=== PATIENT | female | born 2005 | race Asian ===

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

== ENCOUNTER 2023-06-08 10:06 | Outpatient (REF) | payer MEDICAID, SELFPAY ==
[2023-06-08 11:47] LABS: MANUAL DIFF FLAG NO
[2023-06-08 12:01] LABS: Basophils Percent Auto 0.3 % (0-2); Eosinophils Absolute Auto 0.5 X10*3/uL (0.0-0.4); Eosinophils Percent Auto 3.9 % (0-4); Hematocrit 40.6 % (37.0-47.0); Hemoglobin 12.5 g/dl (12.0-16.0); Imm Gran Abs Auto 0.03 X10*3/uL (0.00-0.03); Imm Gran Pct Auto 0.3 % (0.0-0.4); Lymphocytes Absolute Auto 4.5 X10*3/uL (1.2-4.9); Lymphocytes Percent Auto 38.4 % (20-40); Mean Corpuscular HGB Conc 30.8 g/dl (31.0-35.0); Mean Corpuscular Hemoglobin 24.9 pg (27.0-33.0); Mean Corpuscular Volume 80.9 fL (80.0-98.0); Mean Platelet Volume 9.5 fL (9.4-12.3); Monocytes Absolute Auto 0.7 X10*3/uL (0.1-1.2); Monocytes Percent Auto 5.7 % (2-11); Neutrophils Percent Auto 51.4 % (45-73); Platelet Count 359 X10*3/uL (160-400); Red Blood Count 5.02 X10*6/uL (4.20-5.50); Red Cell Distribution Width 14.8 % (11.0-16.0); White Blood Count 11.7 X10*3/uL (4.8-10.8)
[2023-06-08 12:12] LABS: Estimated Average Glucose 105 mg/dL; Hemoglobin A1c % 5.3 % (<6.0)
[2023-06-08 12:43] LABS: Alanine Aminotransferase 16 U/L (0-31); Albumin Level 4.3 g/dL (3.5-5.0); Alkaline Phosphatase 59 U/L (39-117); Anion Gap 12 (12-20); Aspartate Amino Transferase 12 U/L (5-31); Bilirubin Direct < 0.2 mg/dL (0.0-0.5); Bilirubin Total 0.2 mg/dL (0.0-1.0); Blood Urea Nitrogen 14 mg/dL (9-16); Calcium 9.4 mg/dL (8.4-10.2); Carbon Dioxide 25 mmol/L (22-29); Chloride 106 mmol/L (96-108); Cholesterol 171 mg/dL (<200); Estimated Glomerular Filt Rate > 60; Glucose Random 82 mg/dL (60-115); HDL Cholesterol 50 mg/dL (>40); LDL Cholesterol Calculated 88 mg/dL (<100); Potassium 4.4 mmol/L (3.3-5.1); Sodium 139 mmol/L (135-145); Total Protein 8.2 g/dL (6.5-8.0); Triglycerides 169 mg/dL (<150)
[2023-06-08 13:02] LABS: TSH reflex Free T4 6.26 uIU/mL (0.32-4.0)
[2023-06-08 14:24] LABS: Free T4 (Free Thyroxine) 0.86 ng/dL (0.71-1.85)
== END 2023-06-08 10:07 | disposition home or self-care (01) ==
LOC: HO.HHCL 10:06
PROVIDERS: Visit Provider Internal Medicine
DX: E03.8 Other specified hypothyroidism (principal); E06.3 Autoimmune thyroiditis
CPT/HCPCS: 36415; 80048; 80061; 80076; 83036; 84439; 84443; 85025

== ENCOUNTER 2023-06-18 13:23 | Outpatient (AMB) | payer MEDICAID, SELFPAY ==
--- NOTE | 2023-06-18 13:30 | MHC.OFFVIS ---
Intake Vital Signs 06/18/23 13:33 Height 5 ft 7 in Weight 224 lb BMI 35.1 BP 128/80 Blood Pressure Location Rt brachial Position Sitting Pulse 80 Intake Visit Reasons: axillary mass Intake Note: Patient referred by pcp Dr. Harjinder Mars for mass on Lt axilla. Reports mass present for 2-3 years. Patient c/o: denies pain, tenderness, oozing. Narrow Fabric Calenderer Required: No Accompanied by: Self / Same As Patient Allergies No Known Allergies [No Known Allergies*] Allergy (Verified 06/18/23 13:31) HPI HPI Comments History of Present Illness Details Patient presents with a 2 year history of a left axillary soft tissue mass. His increasing size, become more symptomatic. She would like to have it excised. She has no such lesions or gross elsewhere. Chart was reviewed patient evaluated. [facility] Medical History Patient denies significant medical history Social History (Updated 06/18/23 @ 13:31 by GABINO Damian) Alcohol intake: never Patient Tobacco Use Status: Never used Tobacco Physical Exam Vital Signs: Last Vital Signs Pulse 80 06/18/23 13:33 BP 128/80 06/18/23 13:33 BMI result Body Mass Index 35.1 Neck Other: No cervical, periclavicular, or axillary adenopathy bilaterally. Chest Other: For chest breath sounds bilaterally, HS 1 and 2. Patient has a left axillary soft tissue mass consistent with an axillary tail of the breast. No evidence of any other gross pathology demonstrated. Assessment & Plan Assessment & Plan (1) Mass of axillary tail of breast: Code(s): N63.0 - Unspecified lump in unspecified breast Plan As noted above, patient wishes to have this excised. Risks, benefits, alternatives of excision of left axillary soft tissue mass were reviewed with the patient and included but not limited to bleeding, infection, recurrence, numbness, pain, scarring, seroma formation and the patient wishes to proceed. All questions answered. Arrangements were made for this. Coding Level of Care Code New Pt Level 5 (82276) Diagnoses Mass of axillary tail of breast N63.0
[2023-06-18 13:33] VITALS: BP 128/80; PULSE 80; BMI 35.1
== END 2023-06-18 14:05 | disposition home or self-care (01) ==
PROVIDERS: PCP Internal Medicine; Referring Provider Internal Medicine; Visit Provider Surgery
DX: N63.0 Unspecified lump in unspecified breast (principal)
CPT/HCPCS: 99204

== ENCOUNTER → 2023-06-18 13:23 | Outpatient (BNVA) | payer MEDICAID, SELFPAY | PROVIDERS: PCP Internal Medicine; Referring Provider Internal Medicine; Visit Provider Surgery | DX: N63.0 Unspecified lump in unspecified breast (principal) | CPT/HCPCS: 99202 ==

== ENCOUNTER 2023-06-22 11:42 | Day surgery (SDC) | payer MEDICAID, SELFPAY ==
[2023-06-22] VITALS (10 sets, daily range): BP systolic 108–140; BP diastolic 57–91; PULSE 67–90; RESP 12–18; TEMP 36.6–36.7; O2SAT 93–99; BMI 35.5
--- NOTE | 2023-06-22 05:31 | MHC.SHP ---
Pre-Procedural Eval Section A Date of Service: 06/22/23 The patient is an INPATIENT: No Changes since office visit: No Cold of Flu in the past 2 weeks, No New Medical Problems, No Changes in Medication and No Patient answered all questions The History & Physical has been completed within 30 days and I have reviewed it.: Yes Section B Chief Complaint: Unspecified lump in unspecified breast Allergies: Allergies Allergy/AdvReac Type Severity Reaction Status Date / Time No Known Allergies Allergy Verified 06/18/23 13:31 [No Known Allergies*] Plan I have reviewed the history and physical and performed a pertinent physical examination on my patient. No changes have occurred unless specified. Time Spent With Patient Time: Total time managing care of this patient today ____ minutes.
[2023-06-22 12:03] LABS: UPreg QC Valid YES; Urine Pregnancy NEGATIVE (NEGATIVE)
[2023-06-22] MEDS: Lactated Ringers 1,000 ML 100 ML IVCONT (12:13)
--- NOTE | 2023-06-22 12:45 | P.CONAN_ITS ---
Documented by User: Qi Sommer NP 06/21/23 10:11 HPI - Anesthesia Eval Consult details Narrative: 17yo F for Left Wide Local Excision Axillary Mass [facility] Active Problems Active Problems: All Active Problems (Updated 08/28/20 @ 00:01 by Jacobo De Jesus) Mass of axillary tail of breast (Acute) Abdominal pain (Acute) Past Medical History Medical History (Updated 06/22/23 @ 12:27 by Jacquelyn Mathis RN) Hx of abdominal pain Hx: UTI (urinary tract infection) Axillary mass Seasonal allergies Uses control Anemia Patient denies significant medical history Surgical History Surgical History (Updated 06/22/23 @ 12:21 by Jacquelyn Mathis RN) No pertinent past surgical history Social History Social History (Updated 06/18/23 @ 13:31 by GABINO Damian) Alcohol intake: never Patient Tobacco Use Status: Never used Tobacco Are you DNR?: No Advance Directives: No Advance Directives Information Provided: Yes Nutrition Risks: No Nutritional Risk Patient : No FDLMP: now Meds Allergies Allergy/AdvReac Type Severity Reaction Status Date / Time No Known Allergies Allergy Verified 06/22/23 12:25 [No Known Allergies*] Home Medications Medication Instructions Recorded Confirmed Last Taken Type cetirizine 10 mg tablet 10 mg PO BEDTIME PRN allergies 06/22/23 06/22/23 06/21/23 22:00 History norelgestromin 150 mcg-e.estradiol 1 patch transdermal QWEEK 06/22/23 06/22/23 06/20/23 History 35 mcg/24 hr weekly transderm control patch (Xulane) Exam Pertinent Lab Results Pertinent Lab Results: Laboratory Tests 06/08/23 10:08 WBC 11.7 H Hgb 12.5 Hct 40.6 Plt Count 359 Sodium 139 Potassium 4.4 Chloride 106 Carbon Dioxide 25 BUN 14 Creatinine 0.58 Assessment and Plan Assessment Anesthesia Assessment: Chart Reviewed Documented by User: Lisa Mckeon DO 06/22/23 13:21 [facility] Past Medical History Medical History (Updated 06/22/23 @ 12:27 by Jacquelyn Mathis RN) Hx of abdominal pain Hx: UTI (urinary tract infection) Axillary mass Seasonal allergies Uses control Anemia Patient denies significant medical history Family History Family history of problems with anesthesia: No Surgical History Surgical History (Updated 06/22/23 @ 12:21 by Jacquelyn Mathis RN) No pertinent past surgical history History of Problems with Anesthesia: No Social History Social History (Updated 06/18/23 @ 13:31 by GABINO Damian) Alcohol intake: never Patient Tobacco Use Status: Never used Tobacco Are you DNR?: No Advance Directives: No Advance Directives Information Provided: Yes Nutrition Risks: No Nutritional Risk Patient : No FDLMP: now Meds Allergies Allergy/AdvReac Type Severity Reaction Status Date / Time No Known Allergies Allergy Verified 06/22/23 12:25 [No Known Allergies*] Home Medications Medication Instructions Recorded Confirmed Last Taken Type cetirizine 10 mg tablet 10 mg PO BEDTIME PRN allergies 06/22/23 06/22/23 06/21/23 22:00 History norelgestromin 150 mcg-e.estradiol 1 patch transdermal QWEEK 06/22/23 06/22/23 06/20/23 History 35 mcg/24 hr weekly transderm control patch (Xulane) Exam Exam Date and Time: June 22, 2023 1245 Height,Weight and Vital Signs: Height 5 ft 7.5 in Weight 104.326 kg Vital Signs Temperature 98 F 06/22/23 12:07 Pulse Rate 90 06/22/23 12:07 Respiratory Rate 18 06/22/23 12:07 Blood Pressure 137/91 H 06/22/23 12:07 Pulse Oximetry 98 06/22/23 12:07 Oxygen Delivery Method Room Air 06/22/23 12:07 Temperature 98 F 06/22/23 12:07 Pulse Rate 90 06/22/23 12:07 Respiratory Rate 18 06/22/23 12:07 Blood Pressure 137/91 H 06/22/23 12:07 Pulse Oximetry 98 06/22/23 12:07 Oxygen Delivery Method Room Air 06/22/23 12:07 Airway Mallampati Class: I TM Dist: >3cm Neck ROM: Full Loose/Missing/Broken Teeth: No Heart: S1S2 Lungs: CTAB Assessment and Plan Assessment Anesthesia Assessment: Anesthesia Plan Discussed and Chart Reviewed Final Anesthetic Review Family History of Problems with Anesthesia: No History of Problems with Anesthesia: No NPO: Yes ASA Class: I Final Preanesthetic Review: No Changes in Pt Med Stat, Meds/Allgs Chart Reviewed, Consent Obtained/Reviewed and Anes Risks/Benef Reviewed Patient Risk: Low Procedure Risk: Low Anesthetic Plan Anesthetic Plan: MAC: and Agree w/ Assess. and Plan Disposition: Standard PACU
--- NOTE | 2023-06-22 13:41 | P.OP_ITS ---
Operative Note Operative Note Date of Service: 06/22/23 Narrative: Preoperative diagnosis: [] Left axillary tail of breast symptomatic Postop diagnosis: [] Same Procedure [] wide local excision axillary tail left breast and axilla Surgeon: [] [employer] Dispatcher: [] Brooke Type of Anesthesia: [] General Indication for surgery: [] Symptomatic left axillary tail of breast. Findings: [] Patient brought to the operating room, placed on operative table supine position, after adequate level of general anesthesia was induced, the left upper extremity, chest and axilla were all prepped and draped in usual sterile fashion. Using a transverse by elliptical incision in the left medial area of the axilla and lateral aspect of the breast, this carried down through skin, subcutaneous tissue, were excision of left axillary breast tail was uneventfully excised using Bovie. Specimen sent to pathology. Wound was irrigated, secured hemostasis, and closed using combination of interrupted 2-0 and 3-0 dermal Vicryl sutures followed by Steri-Strips and sterile dressings. Wound was infiltrated 0.5% Marcaine/1% lidocaine at completion. Sponge, needle, and instrument counts were reported to be correct. Patient tolerated the procedure well and emerged from anesthesia in stable condition. EBL minimal
[2023-06-22] MEDS: oxyCODONE HCl Immed Release 5 MG TABLET 10 MG PO (14:15)
[2023-06-22] MEDS: fentaNYL citrate/PF 100 MCG/2 ML VIAL 50 MCG IVPUSH ×2 (14:45→14:50)
== END 2023-06-22 15:38 | disposition home or self-care (01) ==
PROVIDERS: Nurse Practitioner; PCP Internal Medicine; Visit Provider Surgery
PROC: (CPT 19120; principal; 2023-06-22 13:10)
DX: N63.32 Unspecified lump in axillary tail of the left breast (principal); N64.89 Other specified disorders of breast; D64.9 Anemia, unspecified; J30.2 Other seasonal allergic rhinitis; Z79.899 Other long term (current) drug therapy; Z79.3 Long term (current) use of hormonal contraceptives
CPT/HCPCS: 19120; 81025; 88305; 88307; J0131; J0665; J0690; J1885; J2250; J2704; J3010

== ENCOUNTER → 2023-06-22 11:42 | Outpatient (BNV) | payer MEDICAID, SELFPAY | PROVIDERS: PCP Internal Medicine; Visit Provider Surgery | DX: N63.20 Unspecified lump in the left breast, unspecified quadrant (principal) | CPT/HCPCS: 19120 ==

== ENCOUNTER 2023-11-20 09:26 | Outpatient (REF) | payer MEDICAID, SELFPAY ==
[2023-11-20 12:19] LABS: TSH reflex Free T4 4.49 uIU/mL (0.32-4.0)
[2023-11-20 13:30] LABS: Free T4 (Free Thyroxine) 0.68 ng/dL (0.71-1.85)
[2023-11-23 00:15] LABS: Prolactin Undiluted 17.4 ng/mL
[2023-11-26 19:38] LABS: Testosterone, Free 1.6 pg/mL (0.1-6.4); Testosterone, Total 28 ng/dL (2-45)
== END 2023-11-20 09:27 | disposition home or self-care (01) ==
LOC: HO.HHCL 09:26
PROVIDERS: Visit Provider General Practice
DX: N92.6 Irregular menstruation, unspecified (principal); E66.3 Overweight
CPT/HCPCS: 36415; 82533; 83498; 84146; 84402; 84403; 84439; 84443

== ENCOUNTER 2023-11-28 09:00 | Outpatient (REF) | payer MEDICAID, SELFPAY ==
[2023-11-28 14:30] LABS: Cortisol Random 2.5 ug/dL
== END 2023-11-28 09:01 | disposition home or self-care (01) ==
LOC: HO.HHCL 09:00
PROVIDERS: Visit Provider General Practice
DX: R79.89 Other specified abnormal findings of blood chemistry (principal)
CPT/HCPCS: 36415; 82533

== ENCOUNTER 2023-12-19 14:23 | Outpatient (REF) | payer MEDICAID, SELFPAY ==
[2023-12-19 17:14] LABS: Free T4 (Free Thyroxine) 1.07 ng/dL (0.71-1.85)
== END 2023-12-19 14:24 | disposition home or self-care (01) ==
LOC: HO.LAB 14:23
PROVIDERS: PCP Internal Medicine; Visit Provider Internal Medicine Endocrinology, Diabetes & Metabolism
DX: R79.89 Other specified abnormal findings of blood chemistry (principal)
CPT/HCPCS: 36415; 84439; 84443; 99202

== ENCOUNTER 2023-12-19 14:23 | Outpatient (AMB) | payer MEDICAID, SELFPAY ==
--- NOTE | 2023-12-19 14:24 | A.OFFVIS_ITS ---
Vital Signs 12/19/23 14:25 Height 5 ft 7 in Weight 231 lb 11.293 oz BMI 36.3 BP 126/76 Blood Pressure Location Rt brachial Position Sitting Pulse 84 Pulse Source Pulse Oximeter Intake Visit Reasons: Obesity, abnormal dexamethasone test Intake Note: Patient present today for Obesity and abnormal dexamethasone test follow up visit. 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 The patient presented to her primary care provider with obesity and menstrual irregularities. Workup was performed which showed a random cortisol 27 a dexamethasone suppression test was performed which showed a non suppressible cortisol at 2.5. Rest of the workup including testosterone, DHEA- S, prolactin was unremarkable except for slightly elevated TSH level. Patient is currently on estradiol patch for 1 yr -2 yrs . Menses are nl on patch. No muscular weakness. Hair loss over 3 yrs with some worsening. No c/o striae. Some easy bruising. No loss of short-term memory. No children . Not looking to have children. Weight has gotten larger particularly around waist PFSH Medical History (Updated 12/19/23 @ 14:54 by Michael Arroyo MD) Elevated TSH Abnormal cortisol level Hx of abdominal pain Hx: UTI (urinary tract infection) Axillary mass Seasonal allergies Uses control Anemia Patient denies significant medical history Surgical History (Updated 06/22/23 @ 12:21 by Jacquelyn Mathis RN) No pertinent past surgical history Social History (Updated 06/18/23 @ 13:31 by GABINO Damian) Alcohol intake: never Patient Tobacco Use Status: Never used Tobacco Physical Exam Const Other: No karthik cushingoid features. She does have somewhat of rounded face . There is some supraclavicular fullness Thyroid gland is normal size weighs about 15 g. There are no thyroid nodules palpated Assessment & Plan Assessment & Plan (1) Abnormal cortisol level: Code(s): R79.89 - Other specified abnormal findings of blood chemistry Category: Medical Plan: This is a 18-year-old female found to have an elevated total cortisol level as well as a non suppressible dexamethasone suppression test. Elevated cortisol and non suppressible cortisol with dexamethasone could be result of the estradiol patch which raises cortisol binding globulin and leads to increased total cortisol levels both random and on dexamethasone suppression. The plan is to get a 24 hour urine for free cortisol and creatinine which will not be affected by the estradiol. Would also repeat TSH and free T4. Depending upon the above, further workup may be obtained (2) Elevated TSH: Code(s): R7.89 - Other specified abnormal findings of blood chemistry Category: Medical Plan: Will repeat TSH and free T4 and consider replacing with levothyroxine if TSH re mauricio elevated Orders: Orders Saliva Cortisol Today R7 - Other specified abnormal findings of blood chemistry Cortisol, Free 24Hr Urine Today R7. - Other specified abnormal findings of blood chemistry Creatinine, 24 Hr Group Today R7 - Other specified abnormal findings of blood chemistry Free T4 (Free Thyroxine) Today - Other specified abnormal findings of blood chemistry Thyroid Stimulating Hormone Today - Other specified abnormal findings of blood chemistry Coding Level of Care Code New Pt Level 4 (73480) Diagnoses Abnormal cortisol level . Elevated TSH
[2023-12-19 14:25] VITALS: BP 126/76; PULSE 84; BMI 36.3
== END 2023-12-19 15:14 | disposition home or self-care (01) ==
PROVIDERS: PCP Internal Medicine; Visit Provider Internal Medicine Endocrinology, Diabetes & Metabolism
DX: R79.89 Other specified abnormal findings of blood chemistry (principal)
CPT/HCPCS: 99204

== ENCOUNTER 2023-12-24 12:28 | Outpatient (REF) | payer MEDICAID, SELFPAY ==
[2023-12-24 13:13] LABS: Creatinine, mg/dL 151.49
[2023-12-24 14:18] LABS: Creatinine, 24Hr Urine 1.4 G/Day (1.0-2.0); Total Volume 24 Hour Urine 950 mL
[2024-01-01 14:24] LABS: Cortisol Free, 24 Hr Urine 14.2 mcg/24 h (4.0-50.0); Total Volume, 24 Hr Urine 950 mL
[2024-01-01 19:29] LABS: Saliva Cortisol 0.03 mcg/dL
== END 2023-12-24 12:29 | disposition home or self-care (01) ==
LOC: HO.LNP 12:28
PROVIDERS: Visit Provider Internal Medicine Endocrinology, Diabetes & Metabolism
DX: R79.89 Other specified abnormal findings of blood chemistry (principal)
CPT/HCPCS: 82530; 82570

== ENCOUNTER 2024-05-07 15:43 | Emergency (ER) | payer MEDICAID, SELFPAY ==
--- NOTE | ~2024-05-07 | CT_ITS ---
EXAMINATION: CT ABDOMEN AND PELVIS WITHOUT CONTRAST CLINICAL INFORMATION: Left-sided flank pain COMPARISON: None available. TECHNIQUE: Multidetector volumetric imaging was performed from the superior aspect of the liver through the pubic symphysis. Sagittal and coronal reformatted images were obtained on the technologist's workstation. This CT examination was performed using dose optimization techniques as appropriate, variously including the following: *Automated exposure control *Adjustment of mA and/or kV according to patient size (this includes techniques or standardized protocols for targeted exams where dose is matched to indication/reason for exam; i.e. extremities or head) *Use of iterative reconstruction technique DLP: 789 mGy-cm FINDINGS: LUNG BASES: The visualized lung bases are unremarkable. LIVER, GALLBLADDER, AND BILIARY TREE: The liver is enlarged measuring 21.2 cm in cephalocaudad dimension. No focal hepatic lesion or biliary ductal dilatation is present. The gallbladder is unremarkable with no evidence of radiopaque gallstones, gallbladder wall thickening, or obvious pericholecystic inflammatory changes. PANCREAS: Unremarkable. SPLEEN: Unremarkable. ADRENAL GLANDS: Unremarkable. KIDNEYS AND URETERS: The kidneys are normal in size, shape, and attenuation. No hydronephrosis, hydroureter, or calculi seen. No perinephric stranding. BLADDER: Empty and cannot be adequately evaluated. No calculi are seen. GASTROINTESTINAL TRACT: The small and large bowel are unremarkable. The appendix is not identified with certainty but there is certainly no evidence of appendicitis. ABDOMINAL WALL: No significant hernia is appreciated. LYMPH NODES: Innumerable small nodes are present in the mesentery with the largest measuring 1.7 cm in short axis dimension (7:34). No gross retroperitoneal lymphadenopathy VASCULAR: Unremarkable. PELVIC VISCERA: The uterus and adnexa are unremarkable. OSSEOUS STRUCTURES: Unremarkable. CT/CT abdomen pelvis wo IV con IMPRESSION: 1. A cause for the patient's left-sided flank pain has not been found. 2. Incidental note made of hepatomegaly and mesenteric lymphadenopathy. Fleischner guidelines were followed. Electronically signed by: Noman Tavarez MD 05/07/2024 10:58 PM [facility]
[2024-05-07 15:58] VITALS: BP 144/87; PULSE 89; RESP 18; TEMP 37; O2SAT 100; BMI 35.4
[2024-05-07 16:19] LABS: MANUAL DIFF FLAG NO
[2024-05-07 16:28] LABS: Basophils Percent Auto 0.4 % (0-2); Eosinophils Absolute Auto 0.5 X10*3/uL (0.0-0.4); Eosinophils Percent Auto 7.5 % (0-4); Hematocrit 37.9 % (37.0-47.0); Imm Gran Abs Auto 0.01 X10*3/uL (0.00-0.03); Imm Gran Pct Auto 0.1 % (0.0-0.4); Lymphocytes Absolute Auto 2.2 X10*3/uL (1.2-4.9); Lymphocytes Percent Auto 32.3 % (20-40); Mean Corpuscular HGB Conc 31.7 g/dl (31.0-35.0); Mean Corpuscular Hemoglobin 24.7 pg (27.0-33.0); Mean Corpuscular Volume 78.1 fL (80.0-98.0); Mean Platelet Volume 8.7 fL (9.4-12.3); Monocytes Absolute Auto 0.7 X10*3/uL (0.1-1.2); Monocytes Percent Auto 10.7 % (2-11); Neutrophils Absolute Auto 3.3 x10*3/uL (2.0-8.3); Platelet Count 282 X10*3/uL (160-400); Red Blood Count 4.85 X10*6/uL (4.20-5.50); Red Cell Distribution Width 14.3 % (11.0-16.0); White Blood Count 6.8 X10*3/uL (4.8-10.8)
[2024-05-07 16:45] LABS: Alanine Aminotransferase 28 U/L (0-31); Albumin Level 4.1 g/dL (3.5-5.0); Alkaline Phosphatase 53 U/L (39-117); Anion Gap 11 (12-20); Aspartate Amino Transferase 27 U/L (5-31); Bilirubin Total 0.3 mg/dL (0.0-1.0); Blood Urea Nitrogen 8 mg/dL (9-16); Calcium 9.8 mg/dL (8.4-10.2); Carbon Dioxide 26 mmol/L (22-29); Chloride 106 mmol/L (96-108); Creatinine Clr Calc Pharmacy 167.3; Estimated Glomerular Filt Rate > 60; Glucose Random 90 mg/dL (60-115); Lipase 18 U/L (8-78); Potassium 4.2 mmol/L (3.3-5.1); Sodium 139 mmol/L (135-145); Total Protein 7.9 g/dL (6.5-8.0)
[2024-05-07 21:19] LABS: HCG Quantitative < 2 mIU/mL
--- NOTE | 2024-05-07 21:39 | ED.NAVMDI ---
HPI - Nausea/Vomiting/Diarrhea General Chief complaint: Nausea/Vomiting/Diarrhea Stated complaint: Abdominal pain/Blood in stool Time Seen by Provider: 05/07/24 20:55 Source: patient and old records reviewed Mode of arrival: ambulatory Limitations: no limitations History of Present Illness ED Provider: OLEG HARPER Narrative: 18 yo female with no sig PMH and no prior surgeries notes she started with abrupt onset L flank pain that wouldn't go away. No trauma. She tried to go to sleep and after a nap that day she woke up disoriented and immediately had n/v/d and unclear if she had a fever. She still had the pain. She took a pepto bismol medication. Next day same pain with n/v/d but noted the stool was black. She notes she still feels sick cannot eat or drink and this will not go away. No prior hx of stones but has had UTI MD elicited complaint: nausea, vomiting, diarrhea and abdominal pain Onset (ago): day(s) (2) Description of vomiting: watery Description of diarrhea: watery and black tarry Associated nausea: Yes Associated abdominal pain: Yes Location of pain: L flank Radiation: diffuse Pain consistency: constant Severity: moderate Exacerbating factors: eating Relieving factors: none Associated symptoms: loss of appetite, malaise and nausea/vomiting Treatment prior to arrival: other OTC medicine Related Data Home Medications ?Medication ?Instructions ?Recorded ?Confirmed cetirizine 10 mg tablet 10 mg PO BEDTIME PRN allergies 06/22/23 06/22/23 norelgestromin 150 mcg-e.estradiol 1 patch transdermal QWEEK 06/22/23 06/22/23 35 mcg/24 hr weekly transderm control patch (Xulane) Previous Rx's ?Medication ?Instructions ?Recorded nitrofurantoin 100 mg PO BID 6 days #12 caps 05/08/24 monohydrate/macrocrystals 100 mg capsule (Macrobid) ondansetron 4 mg disintegrating 4 mg PO Q8H PRN nausea and 05/08/24 tablet vomiting #20 tabs Allergies Allergy/AdvReac Type Severity Reaction Status Date / Time No Known Allergies Allergy Verified 05/07/24 16:02 [No Known Allergies*] Review of Systems Review of Systems: Constitutional : No Weight loss, No Fever, No Chills ENT/Mouth : No sore throat, No Rhinorrhea Eyes: No Swelling, No Redness Cardiovascular : No Chest Pain, No SOB, NoEdema Respiratory : No Cough, No Sputum, No Wheezing Gastrointestinal : Positive Nausea, Positive Vomiting, positive Diarrhea, positive abdominal Pain, No Hematochezia Genitourinary : No Dysuria, No Urinary Frequency, No Hematuria, No Urgency Musculoskeletal : No joint pain, No Myalgias, No Joint Swelling Skin : No Skin Lesions, No rash Neuro : No Weakness, No Numbness, No Dizziness, No Headache All other systems reviewed and are negative. Gastrointestinal: Gastrointestinal: Reports nausea PMFSH Past Medical History Attestation statement: The following information was validated with the patient. Source: old records reviewed Medical History Elevated TSH Abnormal cortisol level Hx of abdominal pain Hx: UTI (urinary tract infection) Axillary mass Seasonal allergies Uses control Anemia Patient denies significant medical history Surgical History No pertinent past surgical history Social History Social History Alcohol intake: never Patient Tobacco Use Status: Never used Tobacco Advance Directives: No Advance Directives Information Provided: No Physical Exam Vital Signs: Vital Signs: Last Vital Signs Temp 97.8 F 05/07/24 22:12 Pulse 79 05/07/24 22:12 Resp 19 05/07/24 22:12 BP 140/70 H 05/07/24 22:12 Pulse Ox 99 05/07/24 22:12 O2 Del Method Room Air 05/07/24 22:12 BMI result Body Mass Index 35.4 Appearance: Alert. Oriented X3. Dry heaving mild acute distress. Eyes: Pupils equal, round and reactive to light. ENT: Pharynx normal. Neck: Normal inspection. Neck supple. CVS: Normal heart rate and rhythm. Pulses normal. Respiratory: No respiratory distress. Breath sounds normal. Abdomen: Soft and ttp in upper abdomen as well as L flank Skin: Skin warm and dry. Normal skin color. Normal skin turgor. Extremities: No lower extremity edema. No calf ttp Neuro: Oriented X 3. No motor deficit. No sensory deficit. Medications Administered Generic Name Dose Route Start Last Admin Trade Name Freq PRN Reason Stop Dose Admin Sodium Chloride 1,000 mls @ 999 mls/hr 05/07/24 23:36 05/07/24 23:53 Ns IV 05/08/24 00:36 999 mls/hr .Q1H1M ONE Administration Discontinued Medications Generic Name Dose Route Start Last Admin Trade Name Cecily PRN Reason Stop Dose Admin Diphenhydramine HCl 25 mg 05/07/24 23:36 05/07/24 23:52 Diphenhydramine Hcl 50 Mg/Ml Vial IVPUSH 05/07/24 23:37 25 mg ONCE ONE Administration Lactated Ringer's 1,000 mls @ 999 mls/hr 05/07/24 21:31 05/07/24 21:45 Lr IV 05/07/24 22:31 999 mls/hr .Q1H1M ONE Administration Ketorolac Tromethamine 15 mg 05/07/24 21:31 05/07/24 22:12 Ketorolac Tromethamine 15 Mg/Ml Vial IVPUSH 05/07/24 21:32 15 mg ONCE ONE Administration Metoclopramide HCl 10 mg 05/07/24 23:36 05/07/24 23:52 Metoclopramide Hcl 10 Mg/2 Ml Vial IVPUSH 05/07/24 23:37 10 mg ONCE ONE Administration Ondansetron HCl 4 mg 05/07/24 21:31 05/07/24 22:12 Ondansetron Hcl 4 Mg/2 Ml Vial IVPUSH 05/07/24 21:32 4 mg ONCE ONE Administration Medical Decision Making Medical Decision Making [facility] Narrative: 18 yo female with no sig PMH or PSH here with c/o L flank pain n/v/d and did have episode of black stool but this was after pepto bismol at this time labs, UA, IV toradol/zofran, CT scan for renal colic Differential Diagnosis Differential Diagnoses: The differential diagnosis associated with the presentation includes UTI, L flank pain, viral syndrome Admission/Observation Consideration of admission/observation: Escalation of care including admission/observation considered CT scan urine and labs normal feels much better tolerating PO stable for DC Lab Data [facility] Lab Attestation statement: I reviewed the patient's lab results. 05/07/24 16:11 05/07/24 16:11 Labs: Lab Results 05/07/24 05/07/24 Range/Units 16:11 22:15 WBC 6.8 (4.8-10.8) X10*3/uL RBC 4.85 (4.20-5.50) X10*6/uL Hgb 12.0 (12.0-16.0) g/dl Hct 37.9 (37.0-47.0) % MCV 78.1 L (80.0-98.0) fL MCH 24.7 L (27.0-33.0) pg MCHC 31.7 (31.0-35.0) g/dl RDW 14.3 (11.0-16.0) % Plt Count 282 (160-400) X10*3/uL MPV 8.7 L (9.4-12.3) fL Immature Gran % (Auto) 0.1 (0.0-0.4) % Neut % (Auto) 49.0 (45-73) % Lymph % (Auto) 32.3 (20-40) % [place] % (Auto) 10.7 (2-11) % Eos % (Auto) 7.5 H (0-4) % Baso % (Auto) 0.4 (0-2) % Lymph # (Auto) 2.2 (1.2-4.9) X10*3/uL [place] # (Auto) 0.7 (0.1-1.2) X10*3/uL Eos # (Auto) 0.5 H (0.0-0.4) X10*3/uL Baso # (Auto) 0.0 (0.0-0.2) X10*3/uL Abs Immat Gran (auto) 0.01 (0.00-0.03) X10*3/uL Absolute Neuts (auto) 3.3 (2.0-8.3) x10*3/uL Absolute Nucleated RBC 0.000 (0.0-0.012) X10*3/uL Nucleated RBC % (auto) 0.0 (0.0-0.2) /100WBC Sodium 139 (135-145) mmol/L Potassium 4.2 (3.3-5.1) mmol/L Chloride 106 (96-108) mmol/L Carbon Dioxide 26 (22-29) mmol/L Anion Gap 11 L (12-20) BUN 8 L (9-16) mg/dL Creatinine 0.66 (0.5-1.4) mg/dL Estim Creat Clear Calc 167.3 Estimated GFR > 60 Random Glucose 90 (60-115) mg/dL Calcium 9.8 (8.4-10.2) mg/dL Magnesium 2.0 (1.6-2.6) mg/dL Total Bilirubin 0.3 (0.0-1.0) mg/dL AST 27 (5-31) U/L ALT 28 (0-31) U/L Alkaline Phosphatase 53 (39-117) U/L Total Protein 7.9 (6.5-8.0) g/dL Albumin 4.1 (3.5-5.0) g/dL Lipase 18 (8-78) U/L Beta HCG, Quant < 2 mIU/mL Urine Color Dark Yellow Urine Appearance Cloudy Urine pH 5.5 (5.0-9.0) Ur Specific [place] 1.025 (1.005-1.025) Urine Protein Trace (Neg-Trace) mg/dL Urine Glucose (UA) Negative (Negative) mg/dL Urine Ketones 15 (Negative) mg/dL Urine Blood Negative (Negative) Urine Nitrite Negative (Negative) Ur Leukocyte Esterase Trace H (Negative) Urine RBC 0-2 (0-2) /HPF Urine WBC 11-20 H (0-5) /HPF Ur Squamous Epith Cells 11-20 (0-2) /HPF Urine Bacteria 4+ (None Seen) Hyaline Casts 6-10 (0-2) /LPF Independent Interpretation I performed an independent interpretation of an: CT Scan (shotty nodes, enlarged liver) Radiology Impression Discussion of test interpretation with radiology: I have reviewed the radiologist's reading. Independent Historian Clinical information obtained from an independent historian. History obtained from or confirmed by: Parent Prescription Management I considered prescription management with: Antibiotic and Other Discharge Plan Discharge Clinical Impression: Acute left flank pain Nausea & vomiting Qualifiers: Vomiting type: unspecified Qualified Code(s): R11.2 - Nausea with vomiting, unspecified Patient Disposition: Home, Self-Care Instructions: Acute Nausea and Vomiting (ED), Acute Abdominal Pain (ED) Additional Instructions: labs reassuring you do have some bacteria in the urine will play you on antibiotics stay hydrated bland diet non specific findings on shotty lymph nodes in the abdomen and enlarged liver but liver enzymes normal please follow up and monitor with PCP return for any worsening symptoms or concerns. you have bacteria in your urine please continue antibiotics starting night Prescriptions: New ondansetron 4 mg tablet,disintegrating 4 mg PO Q8H PRN (Reason: nausea and vomiting) Qty: 20 0RF nitrofurantoin monohyd/m-cryst [Macrobid] 100 mg capsule 100 mg PO BID 6 Days Qty: 12 0RF Rx Instructions: must administer with a meal/food No Action cetirizine 10 mg tablet 10 mg PO BEDTIME PRN (Reason: allergies) Xulane 150-35 mcg/24 hr patch weekly 1 patch transdermal QWEEK MDD weekly Stand Alone Forms: Work/School Release Print Language: Yakut
[2024-05-07] MEDS: Lactated Ringers 1,000 ML 999 ML IV (21:45)
[2024-05-07 22:12] VITALS: BP 140/70; PULSE 79; RESP 19; TEMP 36.6; O2SAT 99
[2024-05-07] MEDS: Ketorolac Tromethamine 15 MG/ML VIAL IVPUSH (22:12)
[2024-05-07] MEDS: ondansetron HCL 4 MG/2 ML VIAL IVPUSH (22:12)
--- NOTE | 2024-05-07 22:15 | PC.NURSE ---
Medicated per MAR.
[2024-05-07 22:23] LABS: Appearance Urine Cloudy; Color Urine Dark Yellow; Glucose Urine UA Negative (Negative); Leukocyte Esterase Urine Trace (Negative); Nitrite Urine Negative (Negative); PH 5.5 (5.0-9.0); Specific Gravity - Urine 1.025 (1.005-1.025); UMIC TRIGGER UACC YES; Urine Blood Negative (Negative); Urine Ketones 15 mg/dL (Negative); Urine Protein Trace mg/dL (Neg-Trace)
[2024-05-07 22:49] LABS: Bacteria Urine 4+ (None Seen); RBC Urine 0-2 /HPF (0-2); UACC Culture Trigger YES
[2024-05-07] MEDS: Metoclopramide HCl 10 MG/2 ML VIAL IVPUSH (23:52)
[2024-05-07] MEDS: diphenhydrAMINE HCL 50 MG/ML VIAL 25 MG IVPUSH (23:52)
[2024-05-07] MEDS: 0.9 % Sodium Chloride 1,000 ML 999 ML IV (23:53)
--- NOTE | 2024-05-07 23:56 | PC.NURSE ---
Medicated per MAR.
[2024-05-08] MEDS: cefTRIAXone sodium 1 GM VIAL IVPUSH (00:46)
[2024-05-08 01:00] VITALS: BP 140/70; PULSE 79; RESP 19; TEMP 36.6; O2SAT 99
== END 2024-05-08 01:01 | disposition home or self-care (01) ==
PROVIDERS: Emergency Provider Emergency Medicine; PCP Internal Medicine
DX: R10.9 Unspecified abdominal pain (principal); R11.2 Nausea with vomiting, unspecified; R19.7 Diarrhea, unspecified; Z87.440 Personal history of urinary (tract) infections
CPT/HCPCS: 36415; 74176; 80053; 81001; 83690; 83735; 84702; 85025; 87086; 96361; 96374; 96375; 99283; 99284; J0696; J1200; J1885; J2405; J2765; J7120